=== PATIENT | female | born 1975 | race American Indian/Alaskan Native ===

== ENCOUNTER 2017-06-05 14:11 | Outpatient (CLI) | payer BC ==
--- NOTE | 2017-06-05 15:14 | Magnetic Resonance Report ---
MRI of the brain without contrast. History: Headache. Procedure: Routine brain protocol. Findings: The posterior fossa is normal. The ventricles are normal in size and contour. There is a 3 mm focus of restricted diffusion in the right paraventricular region. No additional areas of restricted diffusion are present. There is a chronic infarct in the right posterior temporal lobe measuring approximately 2.3 x 3.2 cm. There is no mass effect. There are no masses or extra-axial collections. The pituitary gland is normal. There is evidence of chronic bilateral mastoiditis. The paranasal sinuses and orbits are unremarkable. Impression: 1. Acute/subacute lacunar infarct in the right paraventricular region. 2. 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 3. Chronic bilateral mastoiditis.
== END 2017-06-05 14:12 | disposition home or self-care (01) ==
LOC: MRI 14:11
PROVIDERS: ATTEND Psychiatry & Neurology Neurology
DX: G43.709 Chronic migraine without aura, not intractable, without status migrainosus (principal); I63.9 Cerebral infarction, unspecified; H70.13 Chronic mastoiditis, bilateral
CPT/HCPCS: 70551